=== PATIENT | male | born 2000 | race Caucasian/White ===

== ENCOUNTER 2023-11-19 05:52 | Emergency (ER) | payer BC, SELFPAY ==
[2023-11-19 05:53] VITALS: BMI 24.0
[2023-11-19 06:00] VITALS: BP 149/92
[2023-11-19 06:44] LABS: Glucose - Point of Care 165 mg/dl (70-99)
--- NOTE | 2023-11-19 06:49 | ED.GENMED ---
History of Present Illness
General
Chief Complaint: Abdominal Pain
Source: patient
Exam Limitations: none
Time Seen by Provider: 11/19/23 06:47
Nursing documentation reviewed up to this point in time: agreed with
History of Present Illness
History of Present Illness:
The patient is a 23-year-old man with a past medical history of insulin-dependent diabetes who reportedly, according to the police, was trying to get into a home that was not his. The residence of the home called the police. The patient was found
sitting in the backyard claiming to the police that it was his house. The patient was extremely agitated, cursing, and hostile with police. According to police, it took four officers to detain the patient. Police report that he likely strained
himself in the process. There is no reported head injury. The patient complains of left lower rib pain that is worse with breathing. He denies abdominal pain and nausea. He denies dizziness. He denies headache and neck pain. Patient denies
being on any blood thinners. Patient admits to alcohol. It is unclear if he took drugs and does not specifically answer my question in regards to this.
Past History
Past History
ED Past Medical History: IDDM
ED Past Surgical History: Other
Social History
Tobacco: Other
Alcohol: Other
Drug: Other
Personal: Single
Living: with family
Employment: Other
Family History
Family History: Other
Review of Systems
Review of Systems
Allergies reviewed?: Yes
All Other Systems: ROS reviewed and negative except as documented in HPI and ROS
Constitutional: Reports no symptoms
EENT: Reports no symptoms
Respiratory: Reports no symptoms
Cardiac: Reports no symptoms
ABD/GI: Reports no symptoms
: Reports no symptoms
Musculoskeletal: Reports other (Left chest wall pain)
Skin: Reports other (Bruising around wrist)
Neurological: Reports no symptoms
Endocrine: Reports no symptoms
Hematologic/Lymphatic: Reports no symptoms
Psychiatric: Reports no symptoms
Phy Exam
Physical Exam
Physical Exam:
Physical Exam
General: Patient is fully awake, alert and conversational. Atraumatic face and head
Neck: supple. no meningeal signs. No soft tissue erythema or signs of trauma to neck. Dry mucous membrane
Heart: Tachycardic, regular
Lungs: no acute respiratory distress. clear bilaterally. left lateral lower rib cage tenderness. Reproducible pain in left lower rib cage area with breathing
Abdomen: Soft throughout. Nondistended. When I palpate patient's left upper quadrant, he has no tenderness. No ecchymoses of left upper quadrant. No ecchymoses of back or flank. No flank tenderness
Neuro: alert and oriented. no focal neurological deficits
Skin: Ecchymoses on bilateral wrists. Patient in handcuffs
Psychiatric: well kept. interactive. Slightly agitated
Extremities: No bony tenderness of upper or lower extremities. Pelvis and hips are nontender.
Course
Orders/Labs/Results
Orders:
Orders
11/19/23 06:46
Ribs, Left 3 View W/PA Chest CR [CR Ribs-left 3 Vw W/pa Chest] Urgent
Comment:
Reason For Exam: L lower rib cage pain, possible injury
11/19/23 07:22
Ibuprofen [Motrin] 600 mg PO NOW STA
Abnormal Lab Results
11/19/23
06:43
POC Glucose 165 H mg/dl
(70-99)
Vital Signs
Initial and Last Documented VS:
Initial Vital Signs
Temp Pulse Resp BP Pulse Ox
98.5 F 125 20 149/92 98
11/19/23 06:00 11/19/23 06:00 11/19/23 06:00 11/19/23 06:00 11/19/23 06:00
Last Documented Vital Signs
Temp Pulse Resp BP Pulse Ox
98.5 F 93 20 134/96 100
11/19/23 06:00 11/19/23 07:13 11/19/23 07:13 11/19/23 07:13 11/19/23 07:13
MDM/Problems Addressed
Differential Diagnosis Includes:
Rib contusion, rib fracture, splenic injury, acute alcohol intoxication, dehydration
MDM/Problems Addressed:
Patient presents with acute left lateral rib cage pain after possible trauma
Chronic conditions affecting care: DM
Acute Exacerbation and/or Progression of Chronic Illness:
Patient may be acutely hyperglycemic due to missing insulin
Acute Exacerbation and/or Progression of Chronic Illness: DM
*Radiology
Radiology exam reviewed: preliminary read by ED provider (Chest x-ray reviewed by me. No acute rib fracture seen) and radiology read reviewed
*Pulse Oximetry
Patient hypoxic: no
*EKG
Interpreted by ED Provider?: NA
*Environmental Services Tech Interpretation
Rate: tachycardiac
Interpretation: abnormal
Rhythm: sinus
*Critical Care Note
Total Time (30-74mins, 75-104mins- exclusive of procedures): Not Applicable
Data Reviewed
Source: patient and other (police)
Patient Management
Escalation/DeEscalation of care consider admission/obs:
Patient remains very stable. Abdomen remains completely soft, nontender and nondistended, therefore it is doubtful he has an intra-abdominal injury such as a splenic injury.
Update Note
Update Note:
7:20 AM patient is resting comfortably now. Heart rate in the 90s. Patient was able to get up and ambulate steadily/normally and use the bathroom. Patient's blood sugar in the 160s. He is drinking water. There is no sign of head injury. His
C-spine is nontender. He has no weakness or numbness of his extremities. His abdomen remains soft and nontender throughout. I have considered splenic trauma, however, patient is adamant that his abdomen is not hurting him. Patient instructed to
return immediately with any increased shortness of breath or any abdominal pain.
ED Attending Note
-
Portions of this chart may have been created with voice recognition software.� Occasional wrong word or��sound alike� substitutions may have occurred due to the inherent limitations of voice recognition software.
Discharge Plan
Departure
Patient Disposition: Home (Routine Discharge)
Date of Disposition: 11/19/23
Time of Disposition: 07:21
Patient with high blood pressure during this ER visit?: Yes
Condition: Good
Covid-19: Not Applicable
Discharge Problem:
Contusion of rib on left side
Instructions: Rib Fracture or Bruised Rib ED, BLOOD PRESSURE
Referrals:
PRIVATE,PHYSICIAN [Family Provider] -
Activity Restrictions/Additional Instructions:
Patient is medically cleared for police custody
Take 600 mg of Advil/Motrin every 6-8 hours for pain with food. Please return immediately with any increased shortness of breath or lightheadedness. Please return with any abdominal pain, especially on the left side.
Interventions
Interventions:
*Risk Screen - Suicide Last Done: 11/19/23 05:53
*General Assessment Last Done: 11/19/23 05:53
*Neglect/Abuse Screening Last Done: 11/19/23 05:53
ED- Fall Risk Assessment Last Done: 11/19/23 06:24
*ED COVID-19 Vaccine History Last Done: 11/19/23 05:53
*Nursing Disposition Last Done: 11/19/23 07:27
JA-[id number]-[id number] Assessment Last Done: 11/19/23 06:23
Discharge Date and Time
Discharge Date/Time: 11/19/23 07:28
Print Language: LITHUANIAN
[2023-11-19 07:13] VITALS: BP 134/96
[2023-11-19] MEDS: MOTRIN 600 MG PO (07:24)
== END 2023-11-19 07:28 | disposition home or self-care (01) ==
LOC: EMR 05:52
PROVIDERS: EMERGENCY PHYSICIAN Emergency Medicine
DX: S20.212A Contusion of left front wall of thorax, initial encounter (principal); S60.212A Contusion of left wrist, initial encounter; S60.211A Contusion of right wrist, initial encounter; X58.XXXA Exposure to other specified factors, initial encounter; R45.1 Restlessness and agitation; R03.0 Elevated blood-pressure reading, without diagnosis of hypertension; E11.9 Type 2 diabetes mellitus without complications; Z79.4 Long term (current) use of insulin
CPT/HCPCS: 99283; 71101; 82962